=== PATIENT | male | born 1950 | race Caucasian/White ===

== ENCOUNTER 2018-04-12 07:51 | Day surgery (SDC) | payer MEDICARE, OTHER ==
[~2018-04-12] VITALS: Ht 182.9 cm; Wt 113.6 kg
[~2018-04-12 07:51] MED LIST: ASACOL HD800 MG PO; ASCO500 PO; CHOL10002; FISH OIL 1,0001 EAC1 PO; GLUC500; MESA400ER PO; NORT25 PO; Norco 5-325 Ta1 EACH PO; OMEP20ER PO; OPTIFLEX-C400 MG; Sudogest60 MG PO; Synthroid25 MCG PO; TIZANIDINE HCL2 MG PO; Voltaren100 GM TP; WARF5 PO; WARF7.5 PO
[2018-04-12] MEDS ORDERED: NEBI5 (08:44)
[2018-04-12] MEDS ORDERED: NORT10S (08:46)
[2018-04-12] MEDS ORDERED: ASACOL HD800 MG (08:46)
== END 2018-04-12 10:08 | disposition home or self-care (01) ==
LOC: ORSCSDS 07:51
PROVIDERS: Surgery
PROC: 0DB58ZX Excision of Esophagus, Via Natural or Artificial Opening Endoscopic, Diagnostic (ICD-10-PCS; principal; 2018-04-12 09:15)
DX: K22.70 Barrett's esophagus without dysplasia (principal); Z86.718 Personal history of other venous thrombosis and embolism; G62.9 Polyneuropathy, unspecified; N40.0 Benign prostatic hyperplasia without lower urinary tract symptoms; K50.90 Crohn's disease, unspecified, without complications; Z79.01 Long term (current) use of anticoagulants; Z79.899 Other long term (current) drug therapy; Z87.891 Personal history of nicotine dependence
CPT/HCPCS: 88305

== ENCOUNTER → 2018-12-17 | Outpatient (CLI) | payer MEDICARE, OTHER ==
[~2018-12-17] MED LIST changes: +ASACOL HD800 MG; +NEBI5; +NORT10S
[2018-12-17 10:51] LABS: BASOPHILS ABSOLUTE AUTO 0.05 K/mm3 (0.00-0.23); BASOPHILS PERCENT AUTO 1 % (0-2); EOSINOPHILS ABSOLUTE AUTO 0.36 K/mm3 (0.00-0.68); EOSINOPHILS PERCENT AUTO 5 % (0-6); Hematocrit 54.8 % (37.0-53.0); Hemoglobin 19.1 g/dL (13.5-17.5); IMMATURE GRAN ABSOLUTE AUTO 0.01 K/mm3 (0.00-0.10); IMMATURE GRAN PERCENT AUTO 0 % (0-1); LYMPHOCYTES ABSOLUTE AUTO 1.62 K/mm3 (0.84-5.20); LYMPHOCYTES PERCENT AUTO 24 % (21-46); MONOCYTES PERCENT AUTO 9 % (4-13); Mean Corpuscular HGB Conc 34.9 g/dL (31.5-36.5); Mean Corpuscular Volume 89 fL (80-100); Mean Platelet Volume 9.2 fL (9.1-12.4); NEUTROPHILS ABSOLUTE AUTO 4.13 K/mm3 (1.96-9.15); NEUTROPHILS PERCENT AUTO 61 % (41-73); Platelet Count 183 K/mm3 (150-400); RDW Standard Deviation 42.2 fL (35.1-46.3); Red Blood Cell Count 6.16 M/mm3 (4.30-5.90); White Blood Cell Count 6.77 K/mm3 (4.00-11.30)
[2018-12-17 11:03] LABS: Alanine Aminotransfer (ALT/SGP 88 U/L (12-78); Albumin, Blood 3.8 g/dL (3.4-5.0); Albumin/Globulin Ratio 1.1 (0.8-1.8); Alk Phos 65 U/L (40-126); Anion Gap 7 mmol/L (6-16); Aspartate Aminotrans (AST/SGOT 59 U/L (12-37); Bilirubin, Total 0.6 mg/dL (0.1-1.0); Blood Urea Nitrogen 17 mg/dL (8-24); Bun/Creatinine Ratio 15.3 (12.0-20.0); CO2, Blood 30 mmol/L (21-32); Calcium, Blood 8.6 mg/dL (8.5-10.1); Chloride, Blood 101 mmol/L (98-108); Creatinine, Blood 1.11 mg/dL (0.60-1.20); Globulin, Blood 3.6 g/dL (2.2-4.0); Glomerular Filtration Rate >60 (60-); Glucose, Blood 105 mg/dL (70-99); Potassium, Blood 4.4 mmol/L (3.5-5.5); Sodium, Blood 138 mmol/L (136-145); Total Protein, Blood 7.4 g/dL (6.4-8.2)
[2018-12-17 11:12] LABS: Source, Urine Voided
[2018-12-17 11:18] LABS: White Blood Cells, Urine Not Seen /hpf (0-5)
[2018-12-17 11:19] LABS: Bacteria Not Seen /hpf; Red Blood Cells, Urine TNTC /hpf (0-2); Squamous Epithelial Cells Rare /hpf (Few)
[2018-12-17 11:47] LABS: International Normalized Ratio 3.97; Prothrombin Time Results 37.1 Sec (9.7-11.5)
== END | disposition home or self-care (01) ==
LOC: LAB SHORT 10:45 → LAB EV 10:45
PROVIDERS: Physician Assistant
DX: Z79.01 Long term (current) use of anticoagulants (principal); Z51.81 Encounter for therapeutic drug level monitoring; R31.9 Hematuria, unspecified
CPT/HCPCS: 80053; 81015; 85025; 85610

== ENCOUNTER 2019-10-16 13:11 | Emergency (ER) | payer MEDICARE, OTHER ==
[~2019-10-16] VITALS: Ht 182.9 cm; Wt 106.6 kg
[~2019-10-16 13:11] MED LIST changes: -NORT10S; +NORT10S PO
[2019-10-16] MEDS ORDERED: SYNTHROID88 MCG PO (13:21)
[2019-10-16] MEDS ORDERED: GABAPENTIN600 MG PO (13:21)
[2019-10-16] MEDS ORDERED: TESTOSTERONE (13:24)
[2019-10-16] MEDS ORDERED: CYCL10 PO (13:53)
== END 2019-10-16 13:55 | disposition home or self-care (01) ==
LOC: ER 13:11
DX: R51 Headache (principal); K21.9 Gastro-esophageal reflux disease without esophagitis; E03.9 Hypothyroidism, unspecified; Z86.711 Personal history of pulmonary embolism; Z86.718 Personal history of other venous thrombosis and embolism; Z87.891 Personal history of nicotine dependence; Z79.899 Other long term (current) drug therapy; Z79.01 Long term (current) use of anticoagulants
CPT/HCPCS: 99283

== ENCOUNTER 2020-08-05 11:01 | Emergency (ER) | payer MEDICARE, OTHER ==
[~2020-08-05] VITALS: Ht 182.9 cm; Wt 108.9 kg
[~2020-08-05 11:01] MED LIST changes: +CYCL10 PO; +GABAPENTIN600 MG PO; +SYNTHROID88 MCG PO; +TESTOSTERONE
== END 2020-08-05 12:07 | disposition home or self-care (01) ==
LOC: ER 11:01
DX: S60.151A Contusion of right little finger with damage to nail, initial encounter (principal); Z79.01 Long term (current) use of anticoagulants; Z79.899 Other long term (current) drug therapy; W23.0XXA Caught, crushed, jammed, or pinched between moving objects, initial encounter
CPT/HCPCS: 73630; 99283-25

== ENCOUNTER 2021-05-12 18:35 | Emergency (ER) | payer MEDICARE, OTHER ==
[~2021-05-12] VITALS: Ht 182.9 cm; Wt 111.1 kg
[2021-05-12] MEDS ORDERED: NORTRIPTYLINE H25 M6 PO (18:49)
[2021-05-12] MEDS ORDERED: NEBI5 PO (18:50)
[2021-05-12] MEDS ORDERED: Norco 5-325 Ta1 EACH PO (21:14)
== END 2021-05-12 21:27 | disposition home or self-care (01) ==
LOC: ER 18:35
DX: S01.01XA Laceration without foreign body of scalp, initial encounter (principal); S09.90XA Unspecified injury of head, initial encounter; S30.0XXA Contusion of lower back and pelvis, initial encounter; K21.9 Gastro-esophageal reflux disease without esophagitis; E03.9 Hypothyroidism, unspecified; Z79.01 Long term (current) use of anticoagulants; Z86.718 Personal history of other venous thrombosis and embolism; Z79.890 Hormone replacement therapy; Z23 Encounter for immunization; Z79.899 Other long term (current) drug therapy; W11.XXXA Fall on and from ladder, initial encounter
CPT/HCPCS: 12002; 70450; 90471; 90714; 96374-59; 96375-59; 99284-25; J2270; J2405

== ENCOUNTER → 2022-10-05 | Outpatient (CLI) | payer MEDICARE, OTHER ==
[~2022-10-05] MED LIST changes: +NEBI5 PO; +NORTRIPTYLINE H25 M6 PO
== END | disposition home or self-care (01) ==
LOC: LAB 15:17 → LAB SHORT 15:17
DX: N39.0 Urinary tract infection, site not specified (principal)
CPT/HCPCS: 87086

== ENCOUNTER 2022-10-10 16:35 | Emergency (ER) | payer MEDICARE, OTHER ==
[~2022-10-10] VITALS: Ht 182.9 cm; Wt 108.9 kg
[2022-10-10 17:33] LABS: BASOPHILS ABSOLUTE AUTO 0.06 K/mm3 (0.00-0.23); BASOPHILS PERCENT AUTO 1 % (0-2); EOSINOPHILS ABSOLUTE AUTO 0.33 K/mm3 (0.00-0.68); EOSINOPHILS PERCENT AUTO 5 % (0-6); Hematocrit 46.4 % (37.0-53.0); Hemoglobin 16.3 g/dL (13.5-17.5); IMMATURE GRAN ABSOLUTE AUTO 0.03 K/mm3 (0.00-0.10); IMMATURE GRAN PERCENT AUTO 0 % (0-1); LYMPHOCYTES ABSOLUTE AUTO 2.01 K/mm3 (0.84-5.20); LYMPHOCYTES PERCENT AUTO 28 % (21-46); MONOCYTES ABSOLUTE AUTO 0.51 K/mm3 (0.16-1.47); MONOCYTES PERCENT AUTO 7 % (4-13); Mean Corpuscular HGB 31.7 pg (26.0-34.0); Mean Corpuscular HGB Conc 35.1 g/dL (31.5-36.5); Mean Corpuscular Volume 90 fL (80-100); Mean Platelet Volume 8.8 fL (9.1-12.4); NEUTROPHILS ABSOLUTE AUTO 4.29 K/mm3 (1.96-9.15); NEUTROPHILS PERCENT AUTO 59 % (41-73); Platelet Count 252 K/mm3 (150-400); RDW Coefficient Variation 12.3 % (11.7-14.2); RDW Standard Deviation 40.7 fL (35.1-46.3); Red Blood Cell Count 5.14 M/mm3 (4.30-5.90); White Blood Cell Count 7.23 K/mm3 (4.00-11.30)
[2022-10-10 17:54] LABS: Prothrombin Time Results 77.5 Sec (9.7-11.5)
[2022-10-10 17:55] LABS: Influenza A, PCR NEGATIVE (NEGATIVE); Influenza B, PCR NEGATIVE (NEGATIVE); Resp Syncytial Virus, PCR NEGATIVE (NEGATIVE); SARS-Cov-2 (COVID-19) PCR, MMC NEGATIVE (NEGATIVE)
[2022-10-10 17:55] LABS: Albumin, Blood 3.9 g/dL (3.4-5.0); Albumin/Globulin Ratio 1.1 (0.8-1.8); Bilirubin, Total 0.8 mg/dL (0.1-1.0); Bun/Creatinine Ratio 17.1 (12.0-20.0); Calcium, Blood 9.1 mg/dL (8.5-10.1); Creatinine, Blood 1.64 mg/dL (0.60-1.20); Globulin, Blood 3.6 g/dL (2.2-4.0); Potassium, Blood 4.2 mmol/L (3.5-5.5); Total Protein, Blood 7.5 g/dL (6.4-8.2)
[2022-10-10 18:02] LABS: International Normalized Ratio 8.49
== END 2022-10-10 19:41 | disposition home or self-care (01) ==
LOC: ER 16:35
PROVIDERS: Physician Assistant
DX: N17.9 Acute kidney failure, unspecified (principal); E86.0 Dehydration; R42 Dizziness and giddiness; T45.515A Adverse effect of anticoagulants, initial encounter; Z20.822 Contact with and (suspected) exposure to COVID-19
CPT/HCPCS: 0241U; 36415; 71045; 80053; 83880; 84443; 84484; 85025; 85610; 93005; 93010; J7030

== ENCOUNTER 2022-12-24 20:00 | Emergency (ER) | payer MEDICARE, OTHER ==
[~2022-12-24] VITALS: Ht 182.9 cm; Wt 113.4 kg
[2022-12-24 20:43] LABS: BASOPHILS ABSOLUTE AUTO 0.05 K/mm3 (0.00-0.23); BASOPHILS PERCENT AUTO 1 % (0-2); EOSINOPHILS ABSOLUTE AUTO 0.11 K/mm3 (0.00-0.68); EOSINOPHILS PERCENT AUTO 1 % (0-6); Hematocrit 50.5 % (37.0-53.0); Hemoglobin 17.4 g/dL (13.5-17.5); IMMATURE GRAN ABSOLUTE AUTO 0.02 K/mm3 (0.00-0.10); IMMATURE GRAN PERCENT AUTO 0 % (0-1); LYMPHOCYTES ABSOLUTE AUTO 1.88 K/mm3 (0.84-5.20); LYMPHOCYTES PERCENT AUTO 19 % (21-46); MONOCYTES ABSOLUTE AUTO 0.51 K/mm3 (0.16-1.47); MONOCYTES PERCENT AUTO 5 % (4-13); Mean Corpuscular HGB 31.2 pg (26.0-34.0); Mean Corpuscular HGB Conc 34.5 g/dL (31.5-36.5); Mean Corpuscular Volume 91 fL (80-100); Mean Platelet Volume 9.5 fL (9.1-12.4); NEUTROPHILS ABSOLUTE AUTO 7.33 K/mm3 (1.96-9.15); NEUTROPHILS PERCENT AUTO 74 % (41-73); Platelet Count 200 K/mm3 (150-400); RDW Coefficient Variation 11.9 % (11.7-14.2); RDW Standard Deviation 39.6 fL (35.1-46.3); Red Blood Cell Count 5.58 M/mm3 (4.30-5.90)
[2022-12-24 21:16] LABS: Albumin, Blood 3.7 g/dL (3.4-5.0); Albumin/Globulin Ratio 1.2 (0.8-1.8); Bilirubin, Total 0.6 mg/dL (0.1-1.0); Bun/Creatinine Ratio 11.6 (12.0-20.0); Creatinine, Blood 1.21 mg/dL (0.60-1.20); Globulin, Blood 3.2 g/dL (2.2-4.0); Potassium, Blood 4.2 mmol/L (3.5-5.5); Total Protein, Blood 6.9 g/dL (6.4-8.2)
== END 2022-12-25 00:02 | disposition home or self-care (01) ==
LOC: ER 20:00
PROVIDERS: Student in an Organized Health Care Education/Training Program
DX: R07.2 Precordial pain (principal); R12 Heartburn; K21.9 Gastro-esophageal reflux disease without esophagitis; Z79.899 Other long term (current) drug therapy; Z79.01 Long term (current) use of anticoagulants
CPT/HCPCS: 36415; 71046; 80053; 83690; 84484; 85025; 93005; 93010; 99284-25; A9270

== ENCOUNTER 2023-02-20 21:49 | Observation (INO) | payer MEDICARE, OTHER ==
[~2023-02-20] VITALS: Ht 182.9 cm; Wt 110.9 kg
[2023-02-20] MEDS ORDERED: BUDESONIDE EC3 M6 PO (23:30)
[2023-02-20] MEDS ORDERED: FENOFIBRATE145 MG PO (23:30)
[2023-02-20] MEDS ORDERED: MELO7.5 (23:30)
[2023-02-20] MEDS ORDERED: METO50ER PO (23:30)
[2023-02-20] MEDS ORDERED: TAMSULOSIN HCL0.4 M1 PO (23:31)
[2023-02-21 00:53] LABS: BASOPHILS ABSOLUTE AUTO 0.05 K/mm3 (0.00-0.23); BASOPHILS PERCENT AUTO 1 % (0-2); EOSINOPHILS ABSOLUTE AUTO 0.26 K/mm3 (0.00-0.68); EOSINOPHILS PERCENT AUTO 4 % (0-6); Hematocrit 50.9 % (37.0-53.0); Hemoglobin 17.6 g/dL (13.5-17.5); IMMATURE GRAN ABSOLUTE AUTO 0.02 K/mm3 (0.00-0.10); IMMATURE GRAN PERCENT AUTO 0 % (0-1); LYMPHOCYTES ABSOLUTE AUTO 1.98 K/mm3 (0.84-5.20); LYMPHOCYTES PERCENT AUTO 31 % (21-46); MONOCYTES ABSOLUTE AUTO 0.69 K/mm3 (0.16-1.47); MONOCYTES PERCENT AUTO 11 % (4-13); Mean Corpuscular HGB 30.4 pg (26.0-34.0); Mean Corpuscular HGB Conc 34.6 g/dL (31.5-36.5); Mean Corpuscular Volume 88 fL (80-100); Mean Platelet Volume 9.9 fL (9.1-12.4); NEUTROPHILS ABSOLUTE AUTO 3.49 K/mm3 (1.96-9.15); NEUTROPHILS PERCENT AUTO 54 % (41-73); Platelet Count 194 K/mm3 (150-400); RDW Coefficient Variation 12.2 % (11.7-14.2); RDW Standard Deviation 39.8 fL (35.1-46.3); Red Blood Cell Count 5.79 M/mm3 (4.30-5.90); White Blood Cell Count 6.49 K/mm3 (4.00-11.30)
[2023-02-21 01:22] LABS: Bun/Creatinine Ratio 25.6 (12.0-20.0); C-Reactive Protein, High Sens. 1.43 mg/L (0.000-3.000); Calcium, Blood 8.8 mg/dL (8.5-10.1); Creatinine, Blood 1.17 mg/dL (0.60-1.20); Potassium, Blood 4.1 mmol/L (3.5-5.5)
[2023-02-21 01:38] LABS: Prothrombin Time Results >90.0 Sec (9.7-11.5)
[2023-02-21 01:39] LABS: International Normalized Ratio >10.00
[2023-02-21 03:30] VITALS: BP 168/102
[2023-02-21 05:20] VITALS: BP 159/97
[2023-02-21 05:21] LABS: BASOPHILS ABSOLUTE AUTO 0.03 K/mm3 (0.00-0.23); BASOPHILS PERCENT AUTO 0 % (0-2); EOSINOPHILS ABSOLUTE AUTO 0.21 K/mm3 (0.00-0.68); EOSINOPHILS PERCENT AUTO 3 % (0-6); Hematocrit 49.4 % (37.0-53.0); Hemoglobin 16.8 g/dL (13.5-17.5); IMMATURE GRAN ABSOLUTE AUTO 0.07 K/mm3 (0.00-0.10); IMMATURE GRAN PERCENT AUTO 1 % (0-1); LYMPHOCYTES ABSOLUTE AUTO 1.17 K/mm3 (0.84-5.20); LYMPHOCYTES PERCENT AUTO 17 % (21-46); MONOCYTES ABSOLUTE AUTO 0.63 K/mm3 (0.16-1.47); MONOCYTES PERCENT AUTO 9 % (4-13); Mean Corpuscular HGB 30.1 pg (26.0-34.0); Mean Corpuscular Volume 89 fL (80-100); Mean Platelet Volume 9.8 fL (9.1-12.4); NEUTROPHILS ABSOLUTE AUTO 4.88 K/mm3 (1.96-9.15); NEUTROPHILS PERCENT AUTO 70 % (41-73); Platelet Count 152 K/mm3 (150-400); RDW Coefficient Variation 12.1 % (11.7-14.2); RDW Standard Deviation 39.6 fL (35.1-46.3); Red Blood Cell Count 5.58 M/mm3 (4.30-5.90); White Blood Cell Count 6.99 K/mm3 (4.00-11.30)
--- NOTE | 2023-02-21 05:36 | NUR ---
PATIENT IS ALERT AND ORIENTED, IND IN ROOM, CALLS TO MAKE NEEDS KNOW. HEADACHE AND LOWER BACK/L POSTERIOR HIP PAIN TREATED PER DEC, LIKELY FROM WEDNESDAYS BONE MARROW BIOPSY. SOME COLD SWEATS THROUGH THE NIGHT. VSS. WILL CONT TO MONITOR.
[2023-02-21 05:46] LABS: Albumin, Blood 3.6 g/dL (3.4-5.0); Albumin/Globulin Ratio 1.2 (0.8-1.8); Bilirubin, Total 0.9 mg/dL (0.1-1.0); Calcium, Blood 8.4 mg/dL (8.5-10.1); Creatinine, Blood 1.12 mg/dL (0.60-1.20); Potassium, Blood 3.9 mmol/L (3.5-5.5); Total Protein, Blood 6.6 g/dL (6.4-8.2)
[2023-02-21 06:23] LABS: International Normalized Ratio 6.91
[2023-02-21 07:54] VITALS: BP 154/102
[2023-02-21 14:51] VITALS: BP 152/96
--- NOTE | 2023-02-21 18:06 | NUR ---
SHIFT SUMMARY NO ACUTE CHANGES DURING SHIFT. PT ALERT AND ORIENTED, CALLS APPROPRIATELY. MILD PAIN NOTED TO LLE, MEDICATED PER EMAR, EFFECTIVE. PT REMAINS ON RA, SBA IN ROOM FOR SAFETY, PT ENCOURAGED TO CALL PRIOR TO GETTING UP. PLANS FOR POSSIBLE D/C TOMORROW. WILL CONTINUE TO MONITOR. CALL LIGHT WITHIN REACH.
[2023-02-21 19:44] VITALS: BP 147/85
[2023-02-22 03:16] VITALS: BP 158/97
[2023-02-22 05:20] LABS: International Normalized Ratio 1.65; Prothrombin Time Results 16.8 Sec (9.7-11.5)
--- NOTE | 2023-02-22 06:20 | NUR ---
RERESSED DRESSING, XEROFORM WITH GUAZE AND MESH BAND FOR PLACEMEMT. ULTRAM X1 FOR PAIN. PT CALLS FOR NEEDS.
[2023-02-22 07:53] VITALS: BP 143/94
--- NOTE | 2023-02-22 12:15 | NUR ---
DISCHARGE SUMMARY DISCHARGE, FOLLOWUP, AND MEDICATION INSTRUCTIONS GIVEN TO PT. PT VOICED COMPLETE UNDERSTANDING AND HAS NO QUESTIONS AT THIS TIME. IV'S REMOVED WITH CATHETER TIP INTACT. WILL CONTINUE TO MONITOR UNTIL PT LEAVES UNIT. CALL LIGHT WITHIN REACH.
== END 2023-02-22 14:31 | disposition home or self-care (01) ==
LOC: ER 21:49 → MEDS 21:50 → ER 02-21 03:29 → MEDS 02-21 03:34 → ENPENDDIS 02-22 10:32 → MEDS 02-22 14:31
PROVIDERS: Student in an Organized Health Care Education/Training Program; ADMIT Student in an Organized Health Care Education/Training Program
DX: R79.1 Abnormal coagulation profile (principal); G62.9 Polyneuropathy, unspecified; S91.312A Laceration without foreign body, left foot, initial encounter; X58.XXXA Exposure to other specified factors, initial encounter; K21.9 Gastro-esophageal reflux disease without esophagitis; E03.9 Hypothyroidism, unspecified; N40.0 Benign prostatic hyperplasia without lower urinary tract symptoms
CPT/HCPCS: 36415; 73620; 80048; 80053; 85025; 85610; 85651; 85730; 86141; 96365; 96367; 96368; 96375; 99284-25; A9270; G0378; J1170; J2270; J2405; J2543; J3370; J3430; J7030; J7050; S0077

== ENCOUNTER 2023-08-26 20:17 | Emergency (ER) | payer MEDICARE, OTHER ==
[~2023-08-26] VITALS: Ht 182.9 cm; Wt 113.4 kg
[~2023-08-26 20:17] MED LIST changes: +BUDESONIDE EC3 M6 PO; +FENOFIBRATE145 MG PO; +MELO7.5; +METO50ER PO; +TAMSULOSIN HCL0.4 M1 PO
[2023-08-26 20:49] LABS: BASOPHILS ABSOLUTE AUTO 0.04 K/mm3 (0.00-0.23); BASOPHILS PERCENT AUTO 1 % (0-2); EOSINOPHILS ABSOLUTE AUTO 0.04 K/mm3 (0.00-0.68); EOSINOPHILS PERCENT AUTO 1 % (0-6); Hematocrit 54.9 % (37.0-53.0); Hemoglobin 19.4 g/dL (13.5-17.5); IMMATURE GRAN ABSOLUTE AUTO 0.02 K/mm3 (0.00-0.10); IMMATURE GRAN PERCENT AUTO 0 % (0-1); LYMPHOCYTES ABSOLUTE AUTO 1.38 K/mm3 (0.84-5.20); LYMPHOCYTES PERCENT AUTO 17 % (21-46); MONOCYTES ABSOLUTE AUTO 0.38 K/mm3 (0.16-1.47); MONOCYTES PERCENT AUTO 5 % (4-13); Mean Corpuscular HGB 32.5 pg (26.0-34.0); Mean Corpuscular HGB Conc 35.3 g/dL (31.5-36.5); Mean Corpuscular Volume 92 fL (80-100); Mean Platelet Volume 9.6 fL (9.1-12.4); NEUTROPHILS PERCENT AUTO 78 % (41-73); Platelet Count 199 K/mm3 (150-400); RDW Coefficient Variation 12.2 % (11.7-14.2); RDW Standard Deviation 41.8 fL (35.1-46.3); Red Blood Cell Count 5.97 M/mm3 (4.30-5.90); White Blood Cell Count 8.36 K/mm3 (4.00-11.30)
[2023-08-26 21:09] LABS: Albumin, Blood 4.4 g/dL (3.4-5.0); Albumin/Globulin Ratio 1.2 (0.8-1.8); Bilirubin, Total 0.7 mg/dL (0.1-1.0); Calcium, Blood 9.7 mg/dL (8.5-10.1); Creatinine, Blood 1.5 mg/dL (0.60-1.20); Globulin, Blood 3.7 g/dL (2.2-4.0); Potassium, Blood 4.4 mmol/L (3.5-5.5); Total Protein, Blood 8.1 g/dL (6.4-8.2)
[2023-08-26 23:25] LABS: Magnesium, Blood 1.9 mg/dL (1.6-2.4); Phosphorus, Blood 3.7 mg/dL (2.5-4.9)
[2023-08-27 01:45] VITALS: BP 145/100
[2023-08-27 03:05] LABS: Source, Urine Clean Catch
[2023-08-27 03:31] LABS: Bilirubin, Urine Neg (Neg); Blood, Urine Neg (Neg); Glucose Qualitative, Urine Neg (Neg); Ketones, Urine Neg (Neg); Leukocyte Esterase, Urine Neg (Neg); Nitrite, Urine Neg (Neg); Protein, Urine 2+ (Neg); Urobilinogen, Urine 1+ (Normal)
[2023-08-27 03:38] LABS: Appearance, Urine Clear (Clear); Color, Urine Yellow (P-Yellow)
[2023-08-27 03:39] LABS: Bacteria Few /hpf; Hyaline Casts 0-2 /lpf (0-2); Red Blood Cells, Urine 0-2 /hpf (0-2); Squamous Epithelial Cells Few /hpf (Few); White Blood Cells, Urine 0-2 /hpf (0-5)
[2023-08-27] MEDS ORDERED: AMOCLA875 PO (04:03)
== END 2023-08-27 04:37 | disposition home or self-care (01) ==
LOC: ER 20:17
PROVIDERS: Emergency Medicine
DX: K52.9 Noninfective gastroenteritis and colitis, unspecified (principal); E86.0 Dehydration; R79.89 Other specified abnormal findings of blood chemistry; Z79.899 Other long term (current) drug therapy; Z79.01 Long term (current) use of anticoagulants; K21.9 Gastro-esophageal reflux disease without esophagitis; E03.9 Hypothyroidism, unspecified
CPT/HCPCS: 71045; 74177; 80053; 81001; 83605; 83690; 83735; 84100; 84484; 85025; 93005; 93010; 96361; 96365; 96368; 96375; 99285-25; J0456; J0696; J1885; J3010; J7030; J7050; Q9967

== ENCOUNTER 2024-10-16 14:44 | Emergency (ER) | payer MEDICARE, OTHER ==
[~2024-10-16] VITALS: Ht 182.9 cm; Wt 113.4 kg
[~2024-10-16 14:44] MED LIST changes: +AMOCLA875 PO
[2024-10-16 14:50] VITALS: BP 109/84
[2024-10-16] MEDS ORDERED: Diphth,Pertuss(Acell),Tet Vac 0.5 ML VIAL IM ONE (16:45)
== END 2024-10-16 18:40 | disposition home or self-care (01) ==
LOC: ER 14:44
DX: S61.215A Laceration without foreign body of left ring finger without damage to nail, initial encounter (principal); Z79.01 Long term (current) use of anticoagulants; Z79.890 Hormone replacement therapy; W29.8XXA Contact with other powered hand tools and household machinery, initial encounter
CPT/HCPCS: 12001; 73140; 90471; 90715; 99283-25

== ENCOUNTER 2024-12-15 08:49 | Day surgery (SDC) | payer MEDICARE, OTHER ==
[~2024-12-15] VITALS: Ht 182.9 cm; Wt 108.5 kg
[~2024-12-15 08:49] MED LIST changes: +ANASTROZOLE1 M7 PO; +BUPR150ER PO; +Crestor40 MG PO; +EUTHYROX125 MCG PO; +LOTREXONE4.5 MG PO; +Lactated Ringer's 1,000 ML IV SCH; +MELO7.5 PO; +NIFE30ER PO; +NORTRIPTYLINE H5012 PO; +OLME5TAB PO; +PANT40 PO; -SYNTHROID88 MCG PO
[2024-12-15 09:14] VITALS: BP 128/85
--- NOTE | 2024-12-15 09:24 | NUR ---
History, Chart, Medications and Allergies reviewed before start of procedure. Patient confirms NPO status and agrees with scheduled surgery. Lungs clear T/O to Auscultation. Patient states colon prep results clear. Pre-Op teaching done. Pt verbalizes understanding.
[2024-12-15] MEDS ORDERED: propofoL 80 ML IV ONE (09:27)
--- NOTE | 2024-12-15 09:39 | NUR ---
12/15/24 0939 April Chang History, Chart, Medications and Allergies reviewed before start of procedure.Bite Block Placed PRIOR TO START OF EGD. DR MCKINNEY PROVING ANESTHESAI, SEE RECORD
[2024-12-15] MEDS ORDERED: propofoL 20 ML IV ONE (09:55)
[2024-12-15] MEDS ORDERED: propofoL 40 ML IV ONE (10:06)
[2024-12-15 10:38] VITALS: BP 128/84
[2024-12-15 10:45] VITALS: BP 128/93
--- NOTE | 2024-12-15 11:19 | NUR ---
PT STILL DROWSY, BUT ABLE TO GET CHANGED W/ HELP FROM THIS RN. DR. REYES SPOKE W/ PT AT BEDSIDE ABOUT PROCEDURE & THAT HIS OFFICE WILL CALL PT W/ BX RESULTS. DR. MCKINNEY ALSO STOPS BY TO ASSESS PT. PT SITTING UP IN , DROWSY, BUT DR. MCKINNEY STATES PT IS OKAY TO D/C HOME. D/C INSTRUCTIONS GIVEN TO PT, UNDERSTANDING VERBALIZED. PRINTED D/C INSTRUCTION SHEET PROVIDED WELL. PT DENIES PAIN/NAUSEA, VSS, ON RA. PT STATES HE'S JUST REALLY SLEEPY. ENCOURAGED PT TO GO HOME & TAKE A NAP, TO WHICH PT REPLIED THAT THAT IS WHAT HE'S GOING TO DO. ALL BELONGINGS RETURNED TO PT. PT WHEELED TO MAIN ENTRANCE WHERE HE WILL BE DRIVEN HOME BY IN PRIVATE VEHICLE. STEADY GAIT NOTED UPON TRANSFER FROM TO VEHICLE W/ MIN STANDBY ASSIST. NO VISIBLE SIGNS OF DISTRESS NOTED.
== END 2024-12-15 23:00 | disposition home or self-care (01) ==
LOC: ORSCMMR 08:49 → ORD 10:00 → ORSCMMR 23:00
PROVIDERS: Surgery
PROC: 0DB78ZX Excision of Stomach, Pylorus, Via Natural or Artificial Opening Endoscopic, Diagnostic (ICD-10-PCS; principal; 2024-12-15 10:00)
PROC: 0DB48ZX Excision of Esophagogastric Junction, Via Natural or Artificial Opening Endoscopic, Diagnostic (ICD-10-PCS; principal; 2024-12-15 10:00)
PROC: 0DBK8ZX Excision of Ascending Colon, Via Natural or Artificial Opening Endoscopic, Diagnostic (ICD-10-PCS; principal; 2024-12-15 10:00)
DX: Z12.11 Encounter for screening for malignant neoplasm of colon (principal); Z87.19 Personal history of other diseases of the digestive system; Z86.0101 Personal history of adenomatous and serrated colon polyps; D12.2 Benign neoplasm of ascending colon; K20.90 Esophagitis, unspecified without bleeding; K57.30 Diverticulosis of large intestine without perforation or abscess without bleeding; K21.9 Gastro-esophageal reflux disease without esophagitis; Z86.718 Personal history of other venous thrombosis and embolism; Z79.01 Long term (current) use of anticoagulants; G47.33 Obstructive sleep apnea (adult) (pediatric); Z79.899 Other long term (current) drug therapy; E66.9 Obesity, unspecified; Z68.32 Body mass index [BMI] 32.0-32.9, adult; I10 Essential (primary) hypertension; I25.10 Atherosclerotic heart disease of native coronary artery without angina pectoris; E03.9 Hypothyroidism, unspecified
CPT/HCPCS: 88305; 88342; J2704; J7120